=== PATIENT | female | born 1940 | race Caucasian/White ===

== ENCOUNTER → 2023-10-09 13:32 | Outpatient (REF) | payer MEDICARE, OTHER, SELFPAY | LOC: HWRAD 13:32 | PROVIDERS: ATTENDING PHYSICIAN Internal Medicine Hematology & Oncology; FAMILY PHYSICIAN Internal Medicine Geriatric Medicine | DX: Z12.31 Encounter for screening mammogram for malignant neoplasm of breast (principal); C50.411 Malignant neoplasm of upper-outer quadrant of right female breast; Z78.0 Asymptomatic menopausal state | CPT/HCPCS: 77063; 77067; 77080 ==

== ENCOUNTER 2024-06-16 11:22 | Emergency (ER) | payer MEDICARE, OTHER, SELFPAY ==
[2024-06-16 11:24] VITALS: BP 187/85
[2024-06-16 11:43] LABS: % Basophils 0.9 % (0-2); % Immature Granulocytes 0.4 % (0-0.5); % Lymphocytes 22.3 % (20.5-51.1); % Neutrophils 66.4 % (42.2-75.2); Absolute Basophils 0.1 10^3/uL (0-0.2); Absolute Eosinophils 0.3 10^3/uL (0-0.7); Absolute Lymphocytes 2.5 10^3/uL (1.2-3.4); Absolute Monocytes 0.8 10^3/uL (0.1-0.6); Absolute Neutrophils 7.4 10^3/uL (1.4-6.5); Hematocrit 42.4 % (37.0-47.0); Hemoglobin 14.2 g/dL (12.0-16.0); Mean Corp Hgb Conc. 33.5 g/dL (33.0-37.0); Mean Corpuscular Hgb 30.5 pg (27.0-31.0); Mean Corpuscular Volume 91.2 fL (81.0-99.0); Mean Platelet Volume 9.6 fL (7.4-10.4); Nucleated Red Blood Cells % 0 %; Platelet Count 269 10^3/uL (130-400); Red Blood Cell Count 4.65 10^6/uL (4.20-5.40); Red Cell Dist. Width 12.9 % (11.5-14.5); White Blood Cell Count 11.2 10^3/uL (4.8-10.8)
[2024-06-16 11:49] VITALS: BP 162/67
[2024-06-16 11:51] VITALS: BMI 42.2
[2024-06-16 11:59] LABS: ALT (SGPT) 27 U/L (0-35); AST (SGOT) 36 U/L (14-36); Albumin 4.4 g/dl (3.5-5.0); Alkaline Phosphatase 70 U/L (38-126); Blood Urea Nitrogen 21 mg/dl (7-17); Calcium 9.7 mg/dl (8.4-10.2); Carbon Dioxide 31 mmol/L (22-30); Chloride 98 mmol/L (98-107); Estimated Creatinine Clearance 77 ml/min; Glucose 180 mg/dl (70-99); Potassium 4.4 mmol/L (3.5-5.1); Sodium 141 mmol/L (135-145); Total Bilirubin 0.8 mg/dl (0.2-1.3); Total Protein 7.7 g/dl (6.3-8.2); eGFR > 60.00
[2024-06-16 12:00] VITALS: BP 148/71
[2024-06-16 12:09] LABS: Troponin I < 0.012 ng/ml
--- NOTE | 2024-06-16 12:47 | ED.GENMED ---
History of Present Illness
General
Chief Complaint: Chest Pain
Time Seen by Provider: 06/16/24 12:37
History of Present Illness
History of Present Illness:
83-year-old female with history of pulmonary fibrosis on 6 L O2 and hypertension presenting to the emergency department for chest pain. Patient reports 3 episodes of resolved chest pain, 2 episodes last week, and an episode yesterday. While she
was having episode yesterday, notes that she was at the [employer], advised to come to the ER, however explained that she would come today instead. Episodes have been nonexertional. Denies increased difficulty breathing. Denies cough or fever.
Denies history of blood clots or known history of cardiac disease. Symptoms last about 2 to 3 minutes. She denies any present chest pain. Does note prior history of breast cancer, is on an aromatase inhibitor. She denies any increased lower
extremity swelling. She denies additional acute medical complaints.
Phy Exam
Physical Exam
Physical Exam:
General: Well-appearing, no clinical signs of dehydration, nontoxic and in no acute distress
HEENT: protecting airway
Neck: appears supple
CV: Normal heart rate, regular rhythm
Resp: No accessory muscle use, no increased work of breathing, scant rhonchi at bases
Abd: no distension
Extremities: No deformities, no swelling, no erythema, pulses and sensation intact
Neuro: alert, no focal neurologic deficit
: deferred
Rectal: deferred
Psych: Normal affect
Skin: Intact
Scores
Heart Score for Chest Pain Patients
STEMI patient?: No
History: Slightly or Non-Suspicious
ECG: Normal
Age: >/= 65 years
Risk Factors: 1 or 2 Risk Factors
Troponin: </= Normal Limit
Heart Score for Chest Pain Patients: 3
Heart Score Risk: 2.5% MACE over next 6 weeks
Course
Orders/Labs/Results
Orders:
Orders
06/16/24 11:24
Electrocardiogram (*1) Urgent
Reason for Study: Chest Pain
06/16/24 11:25
Electrocardiogram (*1) Urgent
Reason for Study: Chest Pain
EKG- Treatment ONCE
06/16/24 11:33
Complete Blood Count/With Diff Urgent
Comprehensive Metabolic Panel Urgent
Troponin I Urgent
06/16/24 12:49
CR Chest - 2 Views Urgent
Comment:
Reason For Exam: chest pain
06/16/24 13:53
D-Dimer Urgent
Troponin I Urgent
06/16/24 14:40
CT Chest Pe Study Urgent
Comment:
Reason For Exam: chest pain, elevated dimer
Abnormal Lab Results
06/16/24 06/16/24
11: 13:53
WBC 11.2 H 10^3/uL
(4.8-10.8)
Absolute Neuts (auto) 7.4 H 10^3/uL
(1.4-6.5)
Absolute Monos (auto) 0.8 H 10^3/uL
(0.1-0.6)
D-Dimer 0.84 H ug/mlFEU
(0.00-0.50)
Carbon Dioxide 31 H mmol/L
(22-30)
BUN 21 H mg/dl
(7-17)
Glucose 180 H mg/dl
(70-99)
06/16/24 11:33
06/16/24 11:33
Vital Signs
Initial and Last Documented VS:
Initial Vital Signs
Temp Pulse Resp BP Pulse Ox
99.0 F 90 22 187/85 93
06/16/24 11:24 06/16/24 11:24 06/16/24 11:24 06/16/24 11:24 06/16/24 11:24
Last Documented Vital Signs
Temp Pulse Resp BP Pulse Ox
99.0 F 77 22 145/114 97
06/16/24 11:24 06/16/24 16:31 06/16/24 14:45 06/16/24 15:11 06/16/24 15:30
MDM/Problems Addressed
MDM/Problems Addressed:
83-year-old female with history of pulmonary fibrosis on 6 L of O2 and hypertension presenting to the emergency department for 3 episodes of chest pain. Vital signs on arrival are normal.
On exam patient is well-appearing, no acute distress or discomfort. Benign cardiac and pulmonary exam. No increased work of breathing, no present symptoms. EKG obtained on arrival, nonischemic. In the absence of present chest pain, lower
suspicion for ACS. Laboratory analysis obtained prior to my assessment including troponin, undetectable. Will obtain second troponin within 3-hour time window. Will also repeat EKG to ensure no interval changes. PE is also consideration, prior
history of breast cancer in the past, in remission. Will send screening D-dimer. Will also obtain chest x-ray imaging
14:40 -chest x-ray without interval change. Repeat EKG is unchanged, troponin negative x 2, however D-dimer is elevated. For this reason for completeness, will obtain CT chest imaging
16:35 - CT of the chest without PE, does demonstrate severe pulmonary fibrosis, and a pulmonary nodule, which patient is aware of. Patient remains asymptomatic. At this time feel that she is stable for discharge, however with close interval
follow-up with a coach cleaner. Will provide information. Patient is requesting to go home, feel reasonable. Return precautions discussed and patient verbalized understanding
*EKG
Interpreted by ED Provider?: Yes
EKG Intrepretation Date: 06/16/24
EKG Intrepretation Time: 13:16
Interpretation: normal
Comparison EKG: no changes (09/27/20)
Heart Rate: 90
Rate: normal
Rhythm: sinus
[place]: normal axis
Interval: normal interval
QRS Pattern: normal QRS
Ischemia: non-specific ST changes
*Critical Care Note
Total Time (30-74mins, 75-104mins- exclusive of procedures): Not Applicable
ED Attending Note
-
Portions of this chart may have been created with voice recognition software.� Occasional wrong word or��sound alike� substitutions may have occurred due to the inherent limitations of voice recognition software.
Discharge Plan
Departure
Patient Disposition: Home (Routine Discharge)
Date of Disposition: 06/16/24
Time of Disposition: 16:41
Patient with high blood pressure during this ER visit?: No
Condition: Good
Discharge Problem:
Chest pain
Instructions: Chest pain - Discharge instructions
Referrals:
Lance Pepe MD [Active] -
Percy Gomez MD [Family Provider] -
Activity Restrictions/Additional Instructions:
You were seen in the emergency department for chest pain
You were found to have normal laboratory analysis, EKG. You did not have any chest pain in the emergency department. He did have a CT of your chest, which shows pulmonary fibrosis and a pulmonary nodule that will require continued follow-up.
Please follow-up with a coach cleaner
Please follow-up closely with your primary care physician.
Return to the emergency department for any worsening of your symptoms, or any development of chest pain, difficulty breathing, abdominal pain with persistent vomiting and inability to tolerate food or liquid by mouth (concern for dehydration),
weakness, headache or confusion, fever greater than 100.4, or any additional symptoms that are concerning to you.
Thank you for choosing [facility].
Interventions
Interventions:
*Risk Screen - Suicide Last Done: 06/16/24 11:50
*General Assessment Last Done: 06/16/24 11:50
*Neglect/Abuse Screening Last Done: 06/16/24 11:50
ED- Fall Risk Assessment Last Done: 06/16/24 12:11
*ED COVID-19 Vaccine History Last Done: 06/16/24 11:50
ED- Cardiac Assessment Last Done: 06/16/24 11:50
Discharge Date and Time
Print Language: CHINESE
[2024-06-16 13:34] VITALS: BP 150/75
[2024-06-16 14:00] VITALS: BP 143/68
[2024-06-16 14:25] LABS: D-Dimer 0.84 ug/mlFEU (0.00-0.50)
[2024-06-16 14:36] LABS: Troponin I < 0.012 ng/ml
[2024-06-16 15:11] VITALS: BP 145/114
== END 2024-06-16 16:52 | disposition home or self-care (01) ==
LOC: EMR 11:22
PROVIDERS: Emergency Medicine; EMERGENCY PHYSICIAN Student in an Organized Health Care Education/Training Program; FAMILY PHYSICIAN Internal Medicine Geriatric Medicine
DX: R07.89 Other chest pain (principal); J84.10 Pulmonary fibrosis, unspecified; I11.9 Hypertensive heart disease without heart failure; Z85.3 Personal history of malignant neoplasm of breast
CPT/HCPCS: 99284; 71046; 71275; 80053; 84484; 85025; 85379; 93005; Q9967

== ENCOUNTER → 2024-10-22 13:42 | Outpatient (REF) | payer MEDICARE, OTHER, SELFPAY | LOC: HWRAD 13:42 | PROVIDERS: ATTENDING PHYSICIAN Internal Medicine Geriatric Medicine | DX: E78.2 Mixed hyperlipidemia (principal); M15.9 Polyosteoarthritis, unspecified; E66.01 Morbid (severe) obesity due to excess calories; G62.9 Polyneuropathy, unspecified; G89.29 Other chronic pain; I10 Essential (primary) hypertension; J84.9 Interstitial pulmonary disease, unspecified; J84.10 Pulmonary fibrosis, unspecified; Z85.3 Personal history of malignant neoplasm of breast; E55.9 Vitamin D deficiency, unspecified; I50.9 Heart failure, unspecified; M79.662 Pain in left lower leg | CPT/HCPCS: 93970 ==

== ENCOUNTER → 2024-12-23 13:20 | Outpatient (REF) | payer MEDICARE, OTHER, SELFPAY | LOC: HWRAD 13:20 | PROVIDERS: ATTENDING PHYSICIAN Internal Medicine Rheumatology; FAMILY PHYSICIAN Internal Medicine Geriatric Medicine | DX: M79.672 Pain in left foot (principal) | CPT/HCPCS: 73630 ==